=== PATIENT | male | born 1965 | race Caucasian/White ===

== ENCOUNTER 2021-05-03 09:06 | Outpatient (CLI) | payer BC ==
[~2021-05-03] VITALS: Ht 177.8 cm; Wt 72.6 kg
[2021-05-03 09:17] VITALS: BP 132/71
[2021-05-03] MEDS ORDERED: EPINEPHrine INJECTION 1 MG/ML AMP IM PRN (09:30)
[2021-05-03] MEDS ORDERED: BAMLANIVIMAB 700 MG/ETESEVIMAB 1,400 MG IN NS IV ONE ×3 (09:30)
[2021-05-03] MEDS ORDERED: ACETAMINOPHEN 500 MG TAB (TYLENOL) PO PRN (09:30)
[2021-05-03] MEDS ORDERED: ONDANSETRON 4 MG/2 ML (SDV) Z0FRAN IV PRN (09:30)
[2021-05-03] MEDS ORDERED: diphenhydrAMINE 50 MG/ML INJ (BENADRYL) IV PRN (09:30)
[2021-05-03 10:32] VITALS: BP 109/70
== END 2021-05-03 10:35 | disposition home or self-care (01) ==
LOC: INFUSION 09:06
PROVIDERS: ATTEND Registered Nurse
DX: U07.1 COVID-19 (principal)